=== PATIENT | male | born 1980 | race African-American/Black ===

== ENCOUNTER 2024-09-06 19:09 | Emergency (ER) | payer SELFPAY ==
[~2024-09-06] VITALS: Ht 188 cm; Wt 90.0 kg
[2024-09-06 19:36] VITALS: O2SAT 97
[2024-09-06 21:17] LABS: BASOPHILS % 0.7 % (0.0-2.0); EOSINOPHILS % 2.1 % (0.0-5.0); HEMATOCRIT. 43.1 % (42.0-52.0); HEMOGLOBIN. 14.4 g/dL (14.0-18.0); LYMPHOCYTES % 30.2 % (20.0-50.0); MEAN CORPUSCULAR HEMOGLOBIN 32.4 pg (28.0-32.0); MEAN CORPUSCULAR HGB CONC 33.4 g/dL (31.0-37.0); MEAN PLATELET VOLUME 8.1 fl (7.4-10.4); MONOCYTES % 6.7 % (2.0-8.0); NEUTROPHILS % 60.3 % (40.0-76.0); PLATELET 313 x1000/uL (130-400); RED BLOOD CELL COUNT 4.44 mill/uL (4.7-6.1); RED CELL DISTRIBUTION WIDTH 13.9 % (11.6-14.6); WHITE BLOOD COUNT 10.1 x1000/uL (4.5-11.0)
[2024-09-06 21:27] LABS: CHLORIDE 102 mEq/L (98-107); POTASSIUM 4.4 mEq/L (3.5-5.1); SODIUM 138 mEq/L (136-145)
[2024-09-06 21:28] LABS: CALCIUM 9.8 mg/dL (8.7-10.4); CARBON DIOXIDE 30 mEq/L (21-32)
[2024-09-06 21:33] LABS: CREATININE 0.9 mg/dL (0.6-1.3); GLUCOSE 100 mg/dL (70-105); TROPONIN I HIGH SENSITIVITY 4 ng/L (3.0-53); UREA NITROGEN BLOOD 15 mg/dL (9-23)
[2024-09-06] MEDS: OLANZAPINE 10 MG/VIAL IM ONE (22:06)
[2024-09-07 00:15] VITALS: BP 120/60; PULSE 74; RESP 12; TEMP 36.55848; O2SAT 98
== END 2024-09-07 00:58 ==
LOC: ER 19:09
DX: R07.9 Chest pain, unspecified (principal); F15.90 Other stimulant use, unspecified, uncomplicated; I25.2 Old myocardial infarction
CPT/HCPCS: 99285; 71045; 80048; 85025; 84484; 36415; 93005; 96372; J3490